=== PATIENT | female | born 1940 | race Caucasian/White ===

== ENCOUNTER 2016-04-21 07:32 | Outpatient (CLI) | payer MEDICARE, OTHER ==
[~2016-04-21] VITALS: Ht 162.6 cm; Wt 93.6 kg
--- NOTE | ~2016-04-21 | HEMODYNAMI ---
PATIENT:MOHAMUD ESCOBAR MEDICAL RECORD: [id number] : 40 LOCATION:[facility] ADMISSION DATE: 04/21/16 Generatedon:04/21/201611:45 Patient name: MOHAMUD ESCOBAR Patient #: [id number] SSN: [id number] : 1940 Date of study: 04/21/2016 Page: Of Hemodynamic Procedure Report Patient Data Patient Demographics Procedure consent was obtained First Name: MOHAMUD Gender: Female Last Name: SHAWN : 1940 Middle Initial: A Age: 75 year(s) Patient #: [id number] Race: Unknown SSN: [id number] Additional ID: [id number] Contact details [address]: [address] [place] [address] State: [place] City: [place] Zip code: [address] Past Medical History Allergies Allergen Reaction Date Comments Reported IV contrast dye 04/21/2016 Codeine 04/21/2016 Bactrim 04/21/2016 Other allergy 04/21/2016 Levaquin, Flagyl Admission Admission Data Admission Date: 04/21/2016 Admission Time: 7:32 Arrival Date: 04/21/2016 Arrival Time: 9:30 Admit Source: Other Insurance Payor: Medicare Height (in.): 64 BSA: 1.98 (m2) Height (cm.): 162.56 BMI: 35.36 (kg/m2) Weight (lbs.): 206 Weight (kg.): 93.44 Lab Results Lab Result Date: 04/21/2016 Lab Result Time: 0:00 Biochemistry Name Units Result Min Max BUN mg/dl 18 --(---*)-- 7 18 Creatinine mg/dl 1.6 --(----)-* 0.6 1.3 CBC Name Units Result Min Max Hemoglobin g/dl 14.5 --(*---)-- 13.5 17.5 Procedure Procedure Types Cath Procedure Diagnostic Procedure [facility] w/Coronaries FFR/IVUS Intra-Coronary IVUS Initial PCI Procedure Coronary Stent Initial Procedure Description Procedure Date Procedure Date: 04/21/2016 Procedure Start Time: 11:22 Procedure End Time: 11:43 Procedure Staff Name Function Blade Montana MD Performing Physician Darrel Brown RT Scrub Tania Escudero RN Nurse Marvin Moore RT [employer] Janet Pantoja RT Monitor Procedure Data Cath Procedure Fluoroscopy Diagnostic fluoroscopy Total fluoroscopy Time: 4.3 time: 4.3 min min Diagnostic fluoroscopy Total fluoroscopy dose: 625 dose: 625 mGy mGy Contrast Material Contrast Material Type Amount (ml) Isovue 370 97 Entry Location Entry Primary Successful Side Size Upsize Upsize Entry Closure Succes sful Closure Location (Fr) 1 (Fr) 2 (Fr) Remarks Device Remarks Femoral Right 5 Fr 6 Fr Vascade artery Short Closure System Estimated blood loss: 5 ml Procedure Complications No complications Procedure Medications Medication Administration Route Dosage Versed I.V. 1 mg Fentanyl I.V. 50 mcg Oxygen NC 2 l/min Heparin Flush Bag added to field 2 bags (1000units/500ml NS) Lidocaine 2% added to field 20 Radial Cocktail added to field 1 syringe (Verapomil 2mg/Nitro 400mcg/Heparin 1500units) Versed I.V. 1 mg Fentanyl I.V. 50 mcg Heparin Bolus I.V. 4000 units Hemodynamics Rest BSA: 1.98 (m2) HGB: 14.5 (g/dl) O2 Consumption: Estimated: 183.92 (ml/min) O2 Co nsumption indexed: Estimated:92.89 (ml/min/m) Heart Rate: 75 (bpm) Pressure Samples Time Site Value (mmHg) Purpose Heart Use Rate(bpm) 11:28 LV 171/7,13 Snapshot 75 Snapshots Pre Cath Intra NCS Post Cath Vital Signs Time Heart Resp SPO2 NIBP (mmHg) Rhythm Pain Sedation Rate (ipm) (%) Status Level (bpm) 11:11:58 72 14 99 169/86(128) NSR 0 (11) 10(A) , No pain 11:16:27 72 17 100 166/84(134) NSR 0 (11) 10(A) , No pain 11:20:51 72 16 96 163/87(137) NSR 0 (11) 10(A) , No pain 11:25:17 73 16 96 166/80(130) NSR 0 (11) 9(A) , No pain 11:29:41 74 20 97 167/80(130) NSR 0 (11) 9(A) , No pain 11:34:06 75 21 96 169/85(112) NSR 0 (11) 9(A) , No pain 11:38:32 77 21 96 162/79(118) NSR 0 (11) 9(A) , No pain 11:41:59 77 19 96 166/79(114) NSR 0 (11) 9(A) , No pain Medications Time Medication Route Dose Verified Delivered Reason Note s Effectiveness by by 11:08:04 Oxygen NC 2 l/min Blade Tania Per physician Nan Escudero RN 11:08:17 Heparin Flush added 2 bags Blade Blade used for Bag to Nan Montana MD procedure (1000units/500ml field NS) 11:08:28 Lidocaine 2% added 20ml Blade Blade used for to vial Nan Montana MD procedure field 11:08:38 Radial Cocktail added 1 Blade Blade used for (Verapomil to syringe Nan Montana MD procedure 2mg/Nitro field 400mcg/Heparin 1500units) 11:19:51 Versed I.V. 1 mg Blade Tania for sedation Nan Escudero RN 11:19:58 Fentanyl I.V. 50 mcg Blade Tania for sedation Nan Escudero RN 11:24:07 Versed I.V. 1 mg Blade Tania for sedation Nan Escudero RN 11:24:11 Fentanyl I.V. 50 mcg Blade Tania for sedation Nan Escudero RN 11:32:00 Heparin Bolus I.V. 4000 Blade Tania for DOSE units Nan Escudero RN anticoagulation VERIFIED WITH DR MONTANA Procedure Log Time Note 10:55:43 Marvin Moore RT(R) sent for patient. Start room use. 11:06:39 ACC Patient presents with Stable Angina CCS Anginal Class 2--Slight limitation of ordinary activity. 11:06:41 Diagnostic Cath status Elective 11:06:58 Time tracking: Regular hours 11:07:02 Plan of Care:Hemodynamics will remain stable., Cardiac rhythm will remain stable., Comfort level will be maintained., Respiratory function will remain adequate., Patient/ family verbilizes understanding of procedure., Procedure tolerated without complication., Recovers from procedure without complications.. 11:07:06 Patient received from Outpatients to CCL 1 Alert and oriented. Tansferred to table in Supine position. 11:07:07 Warm blankets applied, and darling hugger turned on for patient comfort. 11:07:08 Correct patient and procedure confirmed by team. 11:07:09 Signed procedure consent form obtained from patient. 11:07:10 ECG and BP/O2 sat monitors applied to patient. 11:08:04 Oxygen 2 l/min NC was given by Tania Escudero RN; Per physician; 11:08:17 Heparin Flush Bag (1000units/500ml NS) 2 bags added to field was given by Blade Montana MD; used for procedure; 11:08:28 Lidocaine 2% 20ml vial added to field was given by Blade Montana MD; used for procedure; 11:08:38 Radial Cocktail (Verapomil 2mg/Nitro 400mcg/Heparin 1500units) 1 syringe added to field was given by Blade Montana MD; used for procedure; 11:10:43 Vital chart was started 11:10:47 Baseline sample Acquired. 11:10:52 Rhythm: sinus rhythm 11:10:53 Full Disclosure recording started 11:10:58 H&P Date Dictated: 04/21/2016 New H&P dictated by physician.. 11:10:59 Pre-procedure instructions explained to patient. 11:10:59 Pre-op teaching completed and patient verbalized understanding. 11:11:00 Family in waiting room. 11:11:02 Patient NPO since Midnight. 11:11:10 Patient allergic to IV contrast dye 11:11:14 Patient allergic to Codeine 11:11:18 Patient allergic to Bactrim 11:11:50 Patient allergic to Other allergy Levaquin, Flagyl 11:11:53 Is the patient allergic to Iodine/contrast media? Yes. 11:11:54 Was the patient premedicated? Yes 11:11:55 Is patient on blood thinner?Yes 11:11:59 ACC The patient was administered the following blood thiners within the last 24 hours: ACCPlavix 11:12:01 Patient diabetic? No. 11:12:04 Previous problem with sedation/anesthesia? No ? 11:12:05 Snore? Yes 11:12:07 Sleep apnea? Yes 11:12:08 Deviated septum? No 11:12:09 Opens mouth fully? Yes 11:12:09 Sticks out tongue? Yes 11:12:14 Airway obstruction? Yes Asthma 11:12:18 Dentures? No ? 11:12:20 Pre procedure: right dorsailis pedis pulse 1+ Palpable, but thready & weak; easily obliterated 11:12:22 Modified Alec's test Ulnar < 7 seconds 11:12:24 Patient pain scale 0/10 ?. 11:12:31 IV patent on arrival in left hand with 0.9% NaCl at [facility]. 11:12:33 Lab results completed and on chart. 11:12:36 Right Radial & Right Groin area was prepped with chlora-prep and draped in sterile fashion 11:12:37 Alarms reviewed by R. N. 11:12:38 Sharps counted by scrub and verified by R.N. 11:13:00 Lab Result : BUN 18 mg/dl 11:13:00 Lab Result : Hemoglobin 14.5 g/dl 11:13:00 Lab Result : Creatinine 1.6 mg/dl 11:13:07 Use device set Radial Dx 11:13:08 Tegaderm 4 x 4 opened to sterile field. 11:13:09 Acist Hand Control opened to sterile field. 11:13:10 Acist Manifold opened to sterile field. 11:13:11 Acist Syringe opened to sterile field. 11:13:12 Cardinal Cath Pack opened to sterile field. 11:13:12 Bag Decanter opened to sterile field. 11:13:12 Terumo 6Fr Slender Glidesheath opened to sterile field. 11:13:13 St Rajinder 260cm J .035 wire opened to sterile field. 11:13:26 --------ALL STOP TIME OUT------ 11:13:28 Final Timeout: patient, procedure, and site verified with staff and physician. All members of the team are in agreement. 11:13:31 Right Radial & Right Groin site verified by team. 11:13:34 Physical assessment completed. ASA score P 3 - A patient with severe systemic disease as per Blade Montana MD. 11:13:38 Sedation plan: IV Moderate Sedation Versed, Fentanyl 11:19:51 Versed 1 mg I.V. was given by Tania Escudero RN; for sedation; 11::58 Fentanyl 50 mcg I.V. was given by Tania Escudero RN; for sedation; 11:20:36 Zero performed for pressure channel P1 11:22:18 Procedure started. 11:22:25 Local anesthetic to right radial artery with Lidocaine 2% by Blade Montana MD.INITIAL ACCESS ONLY 11:23:22 unable to gain radial access 11:23:42 Local anesthetic to right femoral artery with Lidocaine 2% by Blade Montana MD.ADDITIONAL ACCESS 11:23:54 Cordis Infinity 5Fr Multipack catheter opened to sterile field. 11:23:55 Terumo 5Fr [place] Sheath opened to sterile field. 11:24:07 Versed 1 mg I.V. was given by Tania Escudero RN; for sedation; 11:24:11 Fentanyl 50 mcg I.V. was given by Tania Escudero RN; for sedation; 11:24:16 A 5 Fr sheath was inserted into the Right Femoral artery 11:27:09 5 Fr pigtail guide catheter was inserted over the wire 11:28:12 LV hemodynamics recorded. 11:28:14 LV gram done using MAS 11::17 Injector settings: Ml/sec: 5, Volume: 15, 11::22 EF : 55 % 11:28:44 Catheter removed. 11:28:51 5 Fr jl 4 guide catheter was inserted over the wire 11:29:39 LCA angiography performed. 11::42 Injector settings: Ml/sec: 3, Volume: 6, 11:29:45 Catheter removed. 11:29:53 5 Fr 3drc guide catheter was inserted over the wire 11:30:03 RCA angiography performed. 11:30:18 Injector settings: Ml/sec: 3, Volume: 6, 11:30:20 Catheter removed. 11:30:32 Proceeding to intervention. 11:31:37 Cordis 6FR XBLAD 3.5 guide catheter opened to sterile field. 11:31:38 Miller Kasaan Eagleye IVUS Catheter opened to sterile field. 11:31:38 Britt Whisper J 300cm 0.014 guide wire opened to sterile field. 11:31:39 Merit BasixCompak Inflation Kit opened to sterile field. 11:31:39 Terumo 6Fr [place] Sheath opened to sterile field. 11:32:00 Heparin Bolus 4000 units I.V. was given by Tania Escudero RN; for anticoagulation; DOSE VERIFIED WITH DR MONTANA 11:32:59 Sheath upsized to a 6 Fr Short. 11:33:13 6 Fr xblad 3.5 guide catheter was inserted over the wire 11:33:19 whisper wire advanced. 11:33:21 Wire advanced across lesion. 11:33:31 IVUS catheter advanced over wire. 11:35:37 IVUS pass to LAD lesion performed. 11:36:51 IVUS catheter removed over wire. 11:38:44 Inflation Number: 1 A Subitectronic Integrity 3.5 X 12 stent was prepped and advanced across the Mid LAD. The stent was deployed at 13 JESU for 0:10 (min:sec). 11:39:03 Stent catheter was removed intact over wire. 11:39:03 Wire removed. 11:39:04 Guide catheter removed. 11:40:36 Vascade 6/7 Fr Closure Device opened to sterile field. 11:41:02 Sheath removed intact; hemostasis achieved with Vascade Closure System to the Right Femoral artery. 11:41:06 Procedure ended.(Physican Out) 11:41:26 Fluoroscopy time 04.30 minutes. 11:41:30 Flurop Dose total: 625 11:41:30 Fluoroscopy dose: 625 mGy 11:41:36 Contrast amount:Isovue 370 97ml. 11:41:38 Sharps counted by scrub and verified by R.N. 11:41:39 Insertion/operative site no bleeding no hematoma. 11:41:42 Post-op/insertion site Right Femoral artery dressed using a 4 x 4 and Tegaderm. 11:41:47 Post right femoral artery:stable 11:41:49 Post Procedure Pulses reassessed and unchanged 11:41:52 Post procedure rhythm: unchanged. 11:41:55 Estimated blood loss: 5 ml 11:41:56 Post procedure instruction explained to patient.Patient verbalizes understanding. 11:41:57 Patient needs reinforcement of post procedure teaching. 11:43:13 Procedure type changed to Cath procedure, Diagnostic procedure, LHC, [facility] w/Coronaries, FFR/IVUS, Intra-Coronary IVUS Initial, PCI procedure, Coronary Stent Initial 11:43:16 Procedure and supply charges have been captured, reviewed, submitted and are correct. 11:43:20 Procedure Complication : No complications 11:43:22 Vital chart was stopped 11:43:23 See physician's report for complete and final results. 11:43:29 Report given to Post Procedure Room. 11:43:32 Patient transfered to Post Procedure Room with Stretcher. 11:43:33 Procedure ended. 11:43:33 Full Disclosure recording stopped 11:43:41 ACC-PCI Only Patient was given prescriptions, or instructed by Blade Montana MD to start/continue the following medications upon discharge: Plavix 11:43:43 End room use (Document Last) 11:44:30 Arrival Date: 04/21/2016 9:30:00 AM 11:44:35 Admit Source: Other 11:44:37 Insurance Payor : Medicare 11:44:42 Patient Height : 162.56 cm 11:44:46 Patient Weight : 93.44 kg Intervention Summary Intervention Notes Time ActionType Lesion and Equipment Action# Pressure Duration Attributes Used 11:38:44 Place stent Mid LAD Medtronic 1 13 00:10 Integrity 3.5 X 12 stent Device Usage Item Name Manufacture Quantity Catalog Hospital Part Current Minima l Lot# / Number Charge Number Stock Stock Serial# Code Tegaderm 4 1 [id number] 384390 [id number] 5 x 4 Acist Hand Acist 1 82561 142671 052103 777603 5 Control Medical Systems Inc Acist Acist 1 49645 271293 461259 952506 5 Manifold Medical Systems Inc Acist Acist 1 84947 347370 893114 281661 20 Syringe Medical Systems Inc Cardinal Cardinal 1 [id number] 624607 66171 070656 5 Cath Pack Health Bag Microtek 1 2001S 685489 72277 981064 5 Prestiamoci. Terumo 6Fr Terumo 1 [id number] 580444 218769 310305 [address] St Rajinder 1 986958 507213 298973 171111 30 260cm J .035 wire Cordis Cardinal 1 [id number] 090799 69224 575639 30 SideTour 5Fr Multipack catheter Terumo 5Fr Terumo 1 [id number] 088645 000908 145649 40 [place] Sheath Cordis 6FR Cardinal 1 [id number] 615817 408993 689173 10 XBLAD 3.5 Health guide catheter Miller Miller 1 [id number] 367858 871013 881005 8 Kasaan Eagleye IVUS Catheter Britt Britt 1 [id number] 828849 636737 629687 5 Whisper J Vascular 300cm 0.014 guide wire Merit Merit 1 [id number] 139551 666515 451806 15 BasixTembusu Terminalspak Medical Inflation Kit Terumo 6Fr Terumo 1 [id number] 284905 359810 103820 40 [place] Sheath Medtronic Medtronic 1 [id number] 505206 359467 399267 5 [id number] Integrity 3.5 X 12 stent Vascade 09/16 Cardiva 1 [id number] 587914 931556 720589 5 Fr Closure Medical, Device Inc. Signature Audit [place] Stage Time Signature Unsigned Intra-Procedure 04/21/2016 Janet Pantoja 11:45:28 AM RT(R) Signatures Monitor : Janet Pantoja RT Signature : Date : Time : [place] [id number] [place] [address]
[~2016-04-21 07:32] MED LIST: ARICEPT10 MG PO; ASPIRIN EC81 MG PO; BIOTIN5 MG PO; CRANBERRY; FLEXERIL10 MG; LASIX40 MG PO; LEVOTHROID75 MCG PO; LEXAPRO20 MG PO; LOPID600 MG PO; MULTI-DAY VITAM1 TAB PO; NASACORT AQ16.5 GM NS; NORCO 10/325 TA1 TA1; PLAQUENIL200 MG PO; PLENDIL5 MG PO; PRILOSEC20 MG PO; PROVENTIL HFA6.7 GM INH; STOOL SOFTENER240 MG PO; VITAMIN D2000 UNIT PO; XALATAN 0.0052.5 ML EACH EYE; ZYLOPRIM300 MG PO; ZYRTEC10 MG
[2016-04-21 08:22] LABS: BASOPHILS 0 % (0.0-2.0); EOSINOPHILS 0 % (0-7); HEMATOCRIT 44.7 % (36.0-48.0); HEMOGLOBIN 14.5 g/dL (12-16); IMMATURE GRANULOCYTES 0.2 % (0-5); LYMPHOCYTES 23.4 % (15-50); MCH 28.8 pg (26.0-34.0); MCHC 32.4 g/dL (31.0-37.0); MCV 88.7 fL (80.0-100.0); MEAN PLATELET VOLUME 9.9 fL (7.4-10.4); NEUTROPHILS 73.4 % (40-80); PLATELET COUNT 226 10x3/uL (130-400); RBC 5.04 10x6/uL (4.00-5.40); RDW 14.4 % (11.5-14.5); WBC 8.1 10x3/uL (4.8-10.8)
[2016-04-21 08:39] LABS: CARBON DIOXIDE 27.3 mmol/L (21.0-32.0); CREATININE - SERUM 1.6 mg/dL (0.6-1.3); POTASSIUM - SERUM 4.3 mmol/L (3.5-5.1)
[2016-04-21] MEDS ORDERED: LEVOXYL100 MCG PO (08:40)
[2016-04-21] MEDS ORDERED: ZYLOPRIM300 MG PO (08:42)
[2016-04-21] MEDS ORDERED: XALATAN 0.0052.5 ML EACH EYE (08:43)
[2016-04-21] MEDS ORDERED: LIPITOR10 MG PO (08:43)
[2016-04-21] MEDS ORDERED: ACETAMINOPHEN500 M1 PO (08:45)
[2016-04-21] MEDS ORDERED: OSTEO BI-FLEX1 EAC1 PO (08:45)
[2016-04-21] MEDS ORDERED: PREDNISONE10 MG PO (08:47)
[2016-04-21] MEDS ORDERED: PLAVIX75 MG PO ×2 (08:47→12:17)
[2016-04-21] MEDS ORDERED: PRILOSEC PO (08:48)
[2016-04-21 09:05] VITALS: BP 139/69; Ht 162.6 cm; Wt 93.6 kg
--- NOTE | 2016-04-21 14:10 | NUR ---
1210 LYING FLAT, RESTING WITH EYES CLOSED. NC 2L WHILE SLEEPING. NSR RATE 76 WNO C/O CHEST PAIN. PULSES PALP X 4. R GROIN 6F VASCADE C/D/I WITH NO HEMATOMA OR BLEEDING. AT SIDE. 1250 LYING FLAT, TALKING WITH FAMILY AT BEDSIDE. ROOM AIR W NO DISTRESS. NSR W NO C/O CHEST PAIN. R GROIN 6F VASCADE C/D/I WITH NO HEMATOMA OR BLEEDING 1330 R GROIN REMAINS C/D/I WITH NO HEMATOMA OR BLEE
--- NOTE | 2016-04-21 14:39 | NUR ---
ELEVATED HOB, EATING SANDWICH TRAY WITH ASSIST FROM . WILL MONITOR R GROIN FOR BLEEDING.
--- NOTE | 2016-04-21 15:20 | NUR ---
PIV REMOVED FROM LEFT HAND WITH BANDAID APPLIED. AMBULATED TO BATHROOM TO VOID. R GROIN REMAINS C/D/I AFTER AMBULATING.
--- NOTE | 2016-04-21 15:30 | NUR ---
D/C INSTRUCTIONS DISCUSSED WITH PATIENT AND AT BEDSIDE. WHEELED DOWN VIA WHEELCHAIR BY STONE TRIMMER TEAM.
--- NOTE | 2016-04-24 11:11 | OP ---
PATIENT NAME: MOHAMUD ESCOBAR MEDICAL RECORD: [id number] :40 LOCATION:D[facility] ADMISSION DATE: SURGEON: ELOISA JEAN MD DATE OF OPERATION: 04/21/2016 PROCEDURES: 1. PTCA stent, LAD. 2. Intravascular ultrasound of the LAD. 3. Left heart catheterization. 4. Selective coronary angiography. 5. Left ventriculogram. INDICATION: Angina and coronary artery disease. PROCEDURE IN DETAIL: After informed consent was obtained and after detailed explanation of risks, benefits as well as alternative therapies, the patient elected to proceed with angiogram and angioplasty. The right femoral area was prepped and draped in normal sterile fashion. The right femoral artery was cannulated via modified Seldinger technique with placement of 6-Czech sheath. All catheters exchanged through this sheath. FINDINGS: The left ventriculogram was performed in the standard 30-degree MAS view reveals good cardiac wall motion throughout all segments. Overall ejection fraction estimated at 60%. SELECTIVE CORONARY ANGIOGRAPHY: 1. Left main showed no significant angiographic disease. 2. Left anterior descending has a 70% stenosis proximally confirmed by intravascular ultrasound. 3. Right coronary artery has moderate irregularities, but no flow-limiting stenosis. 4. Left circumflex has moderate irregularities, but no flow-limiting stenosis. PERCUTANEOUS TRANSLUMINAL CORONARY ANGIOPLASTY STENT OF THE LEFT ANTERIOR DESCENDING: The stent used is a 3.5 x 12 mm Integrity. Result was 0% residual stenosis. OVERALL IMPRESSION: Successful percutaneous transluminal coronary angioplasty stent of the left anterior descending going from 70% initial stenosis to 0% residual. TRANSINT:[id number] Voice Confirmation ID: [id number] DOCUMENT ID: [id number] ELOISA JEAN MD at 1111 CC: [id number] DICTATION DATE: 04/21/16 1144 DRUG PURCHASER: 04/21/16 1253 DEP CLI 04/21/16 [place] [id number]
--- NOTE | 2016-04-24 11:11 | HP ---
PATIENT: MOHAMUD ESCOBAR MEDICAL RECORD: [id number] ACCOUNT: [id number] LOCATION:[facility] : 40 ADMISSION DATE: 04/21/16 HISTORY AND PHYSICAL EXAMINATION DATE OF HISTORY AND PHYSICAL: 04/21/2016 DIAGNOSES: 1. Angina. 2. Abnormal nuclear stress test, anterior ischemia. HISTORY OF PRESENT ILLNESS: Mrs. Escobar presents with anginal symptomatology, risk stratify with stress testing showed significant anterior ischemia, now brought for cardiac catheterization. PHYSICAL EXAMINATION: GENERAL APPEARANCE: Well-nourished, well-developed, appears stated age. Level of distress, comfortable. PSYCHIATRIC: Mental status, alert, normal affect. Orientation, oriented to time, place and person. EYES: Lids and conjunctiva, noninjected. No discharge, no pallor. ENT: Lips, teeth, gums, normal dentition. Oropharynx, no cyanosis, no pallor. NECK: Carotid arteries, bilateral normal upstroke, no bruits, no thrills. JUGULAR VEINS: No jugular venous pressure or distention. CERVICAL LYMPH NODES: Nontender, nonenlarged. THYROID: Not enlarged. Nontender. No nodules. LUNGS: Respiratory effort, unlabored. CHEST: Normal curvature. No thoracic deformity. No chest wall tenderness. Percussion, resonant. Auscultation, clear. No wheezes, no rales, no rhonchi. CARDIOVASCULAR: Precordial exam, nondisplaced. No heaves or pericardial thrills. Rate and rhythm, regular. Heart sounds, normal S1, normal S2. No S3, no gallop, no rub. Systolic murmur, not heard. Diastolic murmur, not heard. EXTREMITIES: No cyanosis, no edema. Peripheral pulses, full and equal in all extremities, except as noted. No bruits appreciated. ABDOMEN: Soft, nondistended. Normal aorta. No bruit. Nontender. No masses. Liver, nontender, no hepatomegaly. Spleen, nontender, no splenomegaly. MUSCULOSKELETAL: No joint tenderness. No joint swelling. No erythema. NEUROLOGICAL: Normal gait, normal strength, normal tone. SKIN: Warm and dry. REVIEW OF SYSTEMS: The patient reports easy bruising but reports no swollen glands. The patient reports no fever, no night sweats, no significant weight gain, no significant weight loss. No significant exercise tolerance. The patient reports no dry eyes, no irritation, no vision change. Patient reports no difficulty hearing and no ear pain. Patient reports no frequent nose bleeds or nose and sinus problems. Patient reports on arm pain on exertion. No shortness of breath while lying down. No history of heart murmur. Patient reports no cough, no wheezing or coughing up blood. Patient reports no abdominal pain, no vomiting. Normal appetite. No diarrhea and not vomiting blood. No nausea and no constipation. Patient reports no incontinence. No difficulty urinating. No hematuria. No increased frequency. Patient reports no muscle aches. No weakness, no arthralgias, no back pain. No swelling of the extremities. Patient reports no abnormal mole, no jaundice, no rashes. Reports no loss of consciousness. No weakness and no numbness. No seizures, dizziness, or headaches. The patient reports no depression, no sleep disturbance, feeling HISTORY AND PHYSICAL [id number] CREASY,MOHAMUD A safe in a relationship and no alcohol abuse. Patient reports on fatigue. Reports no runny nose or sinus pressure. No itching, no hives, and no frequent sneezing. OVERALL IMPRESSION: Anginal symptomatology with significant disease of the left anterior descending. We will proceed with percutaneous transluminal coronary angioplasty stent of the left anterior descending. TRANSINT:[id number] Voice Confirmation ID: [id number] DOCUMENT ID: [id number] ELOISA JEAN MD at 1111 CC: [id number] DICTATION DATE: 04/21/16 1041 DRESSMAKER GARMENT FITTER: 04/21/16 1053 DEP CLI 04/21/16 [place] [id number] [place] [id number]
== END 2016-04-21 15:31 | disposition home or self-care (01) ==
LOC: D.CATH 07:32
PROVIDERS: Internal Medicine Interventional Cardiology
DX: I25.119 Atherosclerotic heart disease of native coronary artery with unspecified angina pectoris (principal)

== ENCOUNTER 2017-03-10 07:24 | Outpatient (CLI) | payer MEDICARE, OTHER ==
[~2017-03-10] VITALS: Ht 162.6 cm; Wt 95.0 kg
--- NOTE | ~2017-03-10 | HEMODYNAMI ---
PATIENT:MOHAMUD ESCOBAR MEDICAL RECORD: [id number] : 40 LOCATION:[facility] ADMISSION DATE: 03/10/17 Generatedon:03/10/201710:31 Patient name: MOHAMUD ESCOBAR Patient #: [id number] SSN: [id number] : 1940 Date of study: 03/10/2017 Page: Of Hemodynamic Procedure Report Patient Data Patient Demographics Procedure consent was obtained First Name: MOHAMUD Gender: Female Last Name: SHAWN : 1940 Middle Initial: A Age: 76 year(s) Patient #: [id number] Race: Unknown SSN: [id number] Additional ID: [id number] Contact details [address]: [address] [place] [address] State: [place] City: [place] Zip code: [address] Past Medical History Allergies Allergen Reaction Date Comments Reported IV contrast dye 04/21/2016 Codeine 04/21/2016 Bactrim 04/21/2016 Other allergy 04/21/2016 Levaquin, Flagyl Admission Admission Data Admission Date: 03/10/2017 Admission Time: 7:24 Admit Source: Other Lab Results Lab Result Date: 03/10/2017 Lab Result Time: 8:00 Biochemistry Name Units Result Min Max BUN mg/dl 25 --(----)-* 7 18 Creatinine mg/dl 1.7 --(----)-* 0.6 1.3 CBC Name Units Result Min Max Hematocrit % 38.1 *-(----)-- 42 54 Hemoglobin g/dl 12.8 -*(----)-- 13.5 17.5 Procedure Procedure Types Cath Procedure Diagnostic Procedure [facility] w/Coronaries FFR/IVUS Intra-Coronary IVUS Initial Miscellaneous Procedures Moderate Sedation up to 15 minutes Procedure Description Procedure Date Procedure Date: 03/10/2017 Procedure Start Time: 10:16 Procedure End Time: 10:31 Procedure Staff Name Function Blade Montana MD Performing Physician Fritz Forte RT Monitor Marvin Moore RT Scrub Martha Wayne RN Nurse Shyanne Rock RN Nurse Procedure Data Cath Procedure Fluoroscopy Diagnostic fluoroscopy Total fluoroscopy Time: 2.4 time: 2.4 min min Diagnostic fluoroscopy Total fluoroscopy dose: 486 dose: 486 mGy mGy Contrast Material Contrast Material Type Amount (ml) Isovue 300 79 Entry Location Entry Primary Successful Side Size Upsize Upsize Entry Closure Succes sful Closure Location (Fr) 1 (Fr) 2 (Fr) Remarks Device Remarks Femoral Right 5 Fr 6 Fr Exoseal artery Short Estimated blood loss: 10 ml Diagnostic catheters Device Type Used For End Catheter Placement Cordis 5Fr Pigtail Procedure Catheter (MP) Cordis 5Fr JL 4.0 Procedure Catheter (MP) Cordis 5Fr 3DRC Catheter Procedure (MP) Procedure Complications No complications Procedure Medications Medication Administration Route Dosage 0.9% NaCl I.V. ml/hr Lidocaine 2% added to field 20 Heparin Flush Bag added to field 2 bags (1000units/500ml NS) Oxygen NC 2 l/min Fentanyl I.V. 50 mcg Versed I.V. 1 mg Fentanyl I.V. 50 mcg Versed I.V. 1 mg Fentanyl I.V. 50 mcg Versed I.V. 0.5 mg Hemodynamics Rest HGB: 12.8 (g/dl) Heart Rate: 64 (bpm) Snapshots Pre Cath Intra NCS Post Cath Vital Signs Time Heart Resp SPO2 etCO2 NIBP (mmHg) Rhythm Pain Sedation Rate (ipm) (%) (mmHg) Status Level (bpm) 9:51:08 64 15 94 31.6 148/71(113) NSR 0 (11) 10(A) , No pain 9:55:52 63 17 97 21 138/66(109) NSR 0 (11) 10(A) , No pain 10:00:35 63 16 98 11.3 135/62(106) NSR 0 (11) 10(A) , No pain 10:05:18 68 13 98 12.8 139/67(108) NSR 0 (11) 10(A) , No pain 10:10:02 66 15 96 26.3 141/65(106) NSR 0 (11) 10(A) , No pain 10:14:45 68 17 96 24.1 141/61(105) NSR 0 (11) 9(A) , No pain 10:19:30 69 16 95 20.3 141/63(112) NSR 0 (11) 9(A) , No pain 10:24:15 72 14 98 24.8 137/64(103) NSR 0 (11) 10(A) , No pain 10:29:01 67 16 96 19.6 139/62(85) NSR 0 (11) 10(A) , No pain Medications Time Medication Route Dose Verified Delivered Reason Notes Effe ctiveness by by 9:37:50 0.9% NaCl I.V. ml/hr Blade Martha used for Nan Wayne RN procedure 9:38:18 Lidocaine 2% added 20ml Blade Blade for local to vial Nan Montana MD anesthetic field 9:38:29 Heparin Flush added 2 Blade Blade used for Bag to bags Nan Montana MD procedure (1000units/500ml field NS) 9:38:50 Oxygen NC 2 Blade Thomas used for l/min Nan Wayne RN procedure 10:12:57 Fentanyl I.V. 50 Blade Linaresy for steffanie Wayne RN sedation 10:13:08 Versed I.V. 1 mg Blade Linaresy for Nan Wayne RN sedation 10:16:00 Fentanyl I.V. 50 Blade Powellfany for steffanie Wayne RN sedation 10:22:49 Versed I.V. 1 mg Blade Powellfany for Nan Wayne RN sedation 10:23:02 Fentanyl I.V. 50 Blade Thomas for steffanie Wayne RN sedation 10:25:04 Versed I.V. 0.5 Blade Martha for mg Nan Wayne RN sedation Procedure Log Time Note 9:28:35 Informed consent obtained and on chart 9:28:39 Admit Source: Other 9:29:44 Diagnostic Cath status Elective 9:29:45 Time tracking: Regular hours 9:29:50 Plan of Care:Hemodynamics will remain stable., Cardiac rhythm will remain stable., Comfort level will be maintained., Respiratory function will remain adequate., Patient/ family verbilizes understanding of procedure., Procedure tolerated without complication., Recovers from procedure without complications.. 9:29:57 H&P Date Dictated: 03/10/2017 New H&P dictated by physician.. 9:31:12 Lab results completed and on chart. 9:32:11 Lab Result : BUN 25 mg/dl 9:32:11 Lab Result : Creatinine 1.7 mg/dl 9:32:11 Lab Result : Hematocrit 38.1 % 9:32:11 Lab Result : Hemoglobin 12.8 g/dl 9:33:11 Fritz Forte RT(R) sent for patient. Start room use. 9:37:50 0.9% NaCl ml/hr I.V. was administered by Martha Wayne RN; used for procedure; 9:38:18 Lidocaine 2% 20ml vial added to field was administered by Blade Montana MD; for local anesthetic; 9:38:29 Heparin Flush Bag (1000units/500ml NS) 2 bags added to field was administered by Blade Montana MD; used for procedure; 9:38:50 Oxygen 2 l/min NC was administered by Martha Wayne RN; used for procedure; 9:43:29 Patient received from Pre/Post Procedure Room to CCL 1 Alert and oriented. Tansferred to table in Supine position. 9:43:31 Warm blankets applied, and darling hugger turned on for patient comfort. 9:43:31 Correct patient and procedure confirmed by team. 9:43:32 ECG and BP/O2 sat monitors applied to patient. 9:49:15 Vital chart was started 10:03:55 Baseline sample Acquired. 10:04:06 Rhythm: sinus rhythm 10:04:08 Full Disclosure recording started 10:04:09 Pre-procedure instructions explained to patient. 10:04:10 Pre-op teaching completed and patient verbalized understanding. 10:04:12 Family in waiting room. 10:04:14 Patient NPO since Midnight. 10:04:16 Is the patient allergic to Iodine/contrast media? Yes. 10:04:17 Was the patient premedicated? Yes 10:04:19 Is patient on blood thinner?No 10:04:26 ACC The patient was administered the following blood thiners within the last 24 hours: ACCPlavix 10:04:29 Patient diabetic? No. 10:04:32 Patient not . Patient is over age 55. 10:04:35 Previous problem with sedation/anesthesia? No ? 10:04:36 Snore? Yes 10:04:37 Sleep apnea? Yes 10:04:38 Deviated septum? No 10:04:39 Opens mouth fully? Yes 10:04:39 Sticks out tongue? Yes 10:04:43 Airway obstruction? Yes Asthma 10:04:47 Dentures? No ? 10:04:53 Pre procedure: right dorsailis pedis pulse 1+ Palpable, but thready & weak; easily obliterated 10:04:55 Patient pain scale 0/10 ?. 10:05:07 IV patent on arrival in right antecubital with 0.9% NaCl at [facility]. 10:06:05 Right groin area was prepped with chlora-prep and draped in sterile fashion 10:06:06 Alarms reviewed by R. N. 10:06:07 Sharps counted by scrub and verified by R.N. 10:06:14 Use device set Femoral Dx 10:06:18 Tegaderm 4 x 4 opened to sterile field. 10:06:19 ACIST: Hand Control (43883) opened to sterile field. 10:06:20 ACIST: Manifold (11032) opened to sterile field. 10:06:21 ACIST: Syringe (54990) opened to sterile field. 10:06:21 Bag Decanter (2002S) opened to sterile field. 10:06:22 Medline Cath Pack ([id number]) opened to sterile field. 10:06:22 Terumo 5Fr [place] Sheath opened to sterile field. 10:06:23 St Rajinder 260cm J .035 wire opened to sterile field. 10:06:24 Diagnostic Infinity 5Fr Multipack catheter opened to sterile field. 10:10:32 --------ALL STOP TIME OUT------ 10:10:32 Final Timeout: patient, procedure, and site verified with staff and physician. All members of the team are in agreement. 10:10:35 Right groin site verified by team. 10:10:38 Physical assessment completed. ASA score P 2 - A patient with mild systemic disease as per Blade Montana MD. 10:10:40 Sedation plan: IV Moderate Sedation Medication:Versed, Fentanyl 10:12:57 Fentanyl 50 mcg I.V. was administered by Martha Wayne RN; for sedation; 10:13:08 Versed 1 mg I.V. was administered by Martha Wayne RN; for sedation; 10:16:00 Fentanyl 50 mcg I.V. was administered by Martha Wayne RN; for sedation; 10:16:10 Procedure started. 10:16:20 Local anesthetic to right femoral artery with Lidocaine 2% by Blade Montana MD.INITIAL ACCESS ONLY 10:16:57 A 5 Fr sheath was inserted into the Right Femoral artery 10:17:26 A Cordis 5Fr Pigtail Catheter (MP) was advanced over the wire and used for Procedure. 10:17:57 LV angiography performed. 10:17:59 LV gram done using MAS 10:18:05 EF : 60 % 10:18:09 Injector settings: Ml/sec: 10, Volume: 20, 10:18:14 Catheter removed. 10:18:29 A Cordis 5Fr JL 4.0 Catheter (MP) was advanced over the wire and used for Procedure. 10:19:13 LCA angiography performed. 10:19:58 Catheter removed. 10:20:19 A Cordis 5Fr 3DRC Catheter (MP) was advanced over the wire and used for Procedure. 10:20:55 RCA angiography performed. 10:20:57 Catheter removed. 10:21:10 Terumo 6Fr [place] Sheath opened to sterile field. 10:21:11 [employer] BasixCompak Inflation Kit opened to sterile field. 10:21:11 Britt Whisper 190cm wire opened to sterile field. 10:21:11 [place] IVUS Catheter opened to sterile field. 10:22:10 Cordis 6FR XBLAD 4.0 guide catheter opened to sterile field. 10:22:21 Sheath upsized to a 6 Fr Short. 10:22:28 6 Fr XBLAD 4 guide catheter was inserted over the wire 10:22:49 Versed 1 mg I.V. was administered by Martha Wayne RN; for sedation; 10:23:02 Fentanyl 50 mcg I.V. was administered by Martha Wayne RN; for sedation; 10:23:27 Whisper wire advanced. 10:23:50 Wire advanced across lesion. 10:23:59 IVUS catheter advanced over wire. 10:24:36 IVUS pass to LAD lesion performed. 10:25:04 Versed 0.5 mg I.V. was administered by Martha Wayne RN; for sedation; 10:25:14 IVUS catheter removed over wire. 10::13 Wire removed. 10::13 Guide catheter removed. 10::21 Cordis 6Fr Exoseal opened to sterile field. 10::35 Sheath removed intact; hemostasis achieved with Exoseal to the Right Femoral artery. 10:26:37 Procedure ended.(Physican Out) 10:27:13 Fluoroscopy time 02.40 minutes. 10::17 Fluoroscopy dose: 486 mGy 10:: Flurop Dose total: 486 10:: Contrast amount:Isovue 300 79ml. 10:27:22 Sharps counted by scrub and verified by R.N. 10::23 Insertion/operative site no bleeding no hematoma. 10::27 Post-op/insertion site Right Femoral artery dressed using a 4 x 4 and Tegaderm. 10:27:29 Post Procedure Pulses reassessed and unchanged 10:27:31 Post-procedure physical assessment completed. ASA score P 2 - A patient with mild systemic disease as per Blade Montana MD. 10:27:34 Post procedure rhythm: unchanged. 10::37 Estimated blood loss: 10 ml 10:27:38 Post procedure instruction explained to patient.Patient verbalizes understanding. 10:27:39 Patient needs reinforcement of post procedure teaching. 10:28:00 Procedure type changed to Cath procedure, Diagnostic procedure, LHC, LHC w/Coronaries, FFR/IVUS, Intra-Coronary IVUS Initial, Miscellaneous Procedures, Moderate Sedation up to 15 minutes 10:28:04 Procedure Complication : No complications 10:28:28 Procedure and supply charges have been captured, reviewed, submitted and are correct. 10:30:53 Vital chart was stopped 10::54 See physician's report for complete and final results. 10:30:59 Report given to Pre/Post Procedure Room. 10:31:02 Patient transfered to Pre/Post Procedure Room with Stretcher. 10:31:05 Procedure ended. 10:31:05 Full Disclosure recording stopped 10:31:10 End room use (Document Last) Device Usage Item Name Manufacture Quantity Catalog Hospital Part Current Minimal L ot# / Number Charge Number Stock Stock Serial# Code Tegaderm 4 3M 1 1626W [id number] [id number] 5 x 4 (1626W) ACIST: Hand Acist 1 28912 989098 884538 188315 5 Control Medical (71569) Systems Inc ACIST: Acist 1 94397 593214 575731 519833 5 Manifold Medical (99295) Systems Inc ACIST: Acist 1 84788 554918 784590 017350 20 Syringe Medical (96245) Systems Inc Bag Microtek 1 2001S 196466 02462 338779 5 Decanter Medical Inc. (2001S) Medline Cardinal 1 [id number] 803795 43109 290345 5 Cath Pack Health ([id number]) Terumo 5Fr Terumo 1 FRR058 139278 412215 560552 [address] Rajinder 1 597567 640905 226160 778384 30 260cm J .035 wire Diagnostic Cardinal 1 MO5470 662210 46798 491150 30 Infinity Health 5Fr Multipack catheter Cordis 5Fr Cardinal 1 [id number] 5 Pigtail Health Catheter (MP) Cordis 5Fr Cardinal 1 298495 5 JL 4.0 Health Catheter (MP) Cordis 5Fr Cardinal 1 078201 5 3DRC Health Catheter (MP) Terumo 6Fr Terumo 1 HUT234 580019 785312 179768 40 [place] Sheath INFLATOR: [employer] 1 CZ9496 313151 491540 299761 15 [facility] BasixCompak Inflation Kit (NW5587) Britt Britt 1 [id number] 492635 203392 188520 5 Whisper Vascular 190cm wire [facility] 1 69139V 899743 143968 019480 8 [place] IVUS Catheter Cordis 6FR Cardinal 1 [id number] 777430 418598 136061 3 XBLAD 4.0 Health guide catheter Cordis 6Fr Cardinal 1 EX600 136640 348511 269577 10 [employer] Signature Audit [place] Stage Time Signature Unsigned Intra-Procedure 03/10/2017 Marvin Moore 10:31:26 AM RT(R) Signatures Monitor : Fritz Forte RT Signature : Date : Time : [facility] [address] [place] [address]
[~2017-03-10 07:24] MED LIST changes: +ACETAMINOPHEN500 M1 PO; +LEVOXYL100 MCG PO; +LIPITOR10 MG PO; +OSTEO BI-FLEX1 EAC1 PO; +PLAVIX75 MG PO; +PREDNISONE10 MG PO; +PRILOSEC PO
[2017-03-10 07:47] VITALS: BP 164/70; Ht 162.6 cm; Wt 95.0 kg
[2017-03-10 08:10] LABS: BASOPHILS 0 % (0-2); EOSINOPHILS 0 % (0-7); HEMATOCRIT 38.1 % (36.0-48.0); HEMOGLOBIN 12.8 g/dL (12-16); IMMATURE GRANULOCYTES 0.3 % (0-5); LYMPHOCYTES 45.5 % (15-50); MCHC 33.6 g/dL (31.0-37.0); MCV 86.2 fL (80.0-100.0); MEAN PLATELET VOLUME 8.8 fL (7.4-10.4); MONOCYTES 5.4 % (2-11); NEUTROPHILS 48.8 % (40-80); RBC 4.42 10x6/uL (4.00-5.40); RDW 15.4 % (11.5-14.5); WBC 5.8 10x3/uL (4.8-10.8)
[2017-03-10 08:19] LABS: PLATELET COUNT 141 10x3/uL (130-400)
[2017-03-10 08:20] LABS: ANION GAP 15.7 mmol/L (8-16); CALCIUM 9.9 mg/dL (8.5-10.1); CARBON DIOXIDE 22.1 mmol/L (21.0-32.0); CREATININE - SERUM 1.7 mg/dL (0.6-1.3); POTASSIUM - SERUM 3.8 mmol/L (3.5-5.1)
--- NOTE | 2017-03-10 10:45 | NUR ---
1045 RECEIVED PT FROM [employer]. PT IS DROWSY. RR EVEN AND UNLABORED. DRESSING RIGHT GROIN IS CDI, AREA IS SOFT AND NONTENDER. PEDAL PULSES PALPABLE. NSR, RATE 61. BP IS 126/59. INSTRUCTED PT TO KEEP HEAD FLAT TO PILLOW AND RIGHT LEG STRAIGHT AND PT VERBALIZES UNDERSTANDING. CALL LIGHT IN REACH, FAMILY AT BEDSIDE.
--- NOTE | 2017-03-10 11:06 | NUR ---
PT RESTING WITH EYES CLOSED, AWAKENS EASILY. DRESSING CDI, AREA SOFT AND NONTENDER. PEDAL PULSES PALPABLE. PT DENIES ANY C/O. FAMILY AT BEDSIDE.
--- NOTE | 2017-03-10 11:35 | NUR ---
1135 PT DENIES ANY C/O. DRESSING TO RIGHT GROIN IS CDI, AREA IS SOFT AND NONTENDER. PEDAL PULSES PALPABLE. VSS. AT BEDSIDE, CALL LIGHT IS IN REACH.
--- NOTE | 2017-03-10 12:07 | NUR ---
SANDWICH AND PO FLUIDS SERVED. PT DENIES ANY C/O. DRESSING TO RIGHT GROIN IS CDI, AREA IS SOFT AND NONTENDER. PEDAL PULSES PALPABLE. FAMILY AT BEDSIDE.
--- NOTE | 2017-03-10 12:16 | NUR ---
PT STALIN PO INTAKE WITH NO C/O NAUSEA. DRESSING RIGHT GROIN IS CDI, AREA SOFT AND NONTENDER. PEDAL PULSES PALPABLE, PT SLEEPING BUT AWAKENS EASILY, DENIES ANY C/O. AT BEDSIDE. CALL LIGHT IN REACH.
--- NOTE | 2017-03-10 12:41 | NUR ---
HOB ELEVATED. DRESSING TO RIGHT GROIN IS CDI, AREA SOFT AND NONTENDER. PEDAL PULSES PALPABLE. CAP REFILL IS BRISK. PT DENIES ANY C/O AT THIS TIME. AT BEDSIDE, CALL LIGHT IN REACH.
--- NOTE | 2017-03-10 13:02 | NUR ---
IV DC'D WITH CATH INTACT. DC INSTRUCTIONS REVIEWED WITH PT AND WHO VERBALIZE UNDERSTANDING. WRITTEN COPIES PROVIDED. MULTIPLE FAMILY MEMBERS IN ROOM ASSISTING PT WITH DRESSING.
--- NOTE | 2017-03-10 13:30 | NUR ---
1330 PT HAS AMBULATED TO THE BATHROOM AND VOIDED QS. DENIES ANY C/O UPON DC. DRESSING REMAINS CDI. PT ESCORTED TO PRIVATE AUTO VIA WC BY NURSE WITH DRIVNG HER HOME.
--- NOTE | 2017-03-23 12:14 | HP ---
PATIENT: MOHAMUD ESCOBAR MEDICAL RECORD: [id number] ACCOUNT: [id number] LOCATION:[facility] : 40 ADMISSION DATE: 03/10/17 HISTORY AND PHYSICAL EXAMINATION DIAGNOSES: 1. Angina. 2. Abnormal nuclear stress test. 3. Hypertension. 4. Hyperlipidemia. HISTORY: Mrs. Escobar presented with anginal symptomatology. She underwent risk stratification with stress testing, revealing significant perfusion defects inferiorly as well as anteriorly, now brought back for angiogram. REVIEW OF SYSTEMS: The patient reports easy bruising but reports no swollen glands. The patient reports no fever, no night sweats, no significant weight gain, no significant weight loss. No significant exercise tolerance. The patient reports no dry eyes, no irritation, no vision change. Patient reports no difficulty hearing and no ear pain. Patient reports no frequent nose bleeds or nose and sinus problems. Patient reports on arm pain on exertion. No shortness of breath while lying down. No history of heart murmur. Patient reports no cough, no wheezing or coughing up blood. Patient reports no abdominal pain, no vomiting. Normal appetite. No diarrhea and not vomiting blood. No nausea and no constipation. Patient reports no incontinence. No difficulty urinating. No hematuria. No increased frequency. Patient reports no muscle aches. No weakness, no arthralgias, no back pain. No swelling of the extremities. Patient reports no abnormal mole, no jaundice, no rashes. Reports no loss of consciousness. No weakness and no numbness. No seizures, dizziness, or headaches. The patient reports no depression, no sleep disturbance, feeling safe in a relationship and no alcohol abuse. Patient reports on fatigue. Reports no runny nose or sinus pressure. No itching, no hives, and no frequent sneezing. PHYSICAL EXAMINATION: GENERAL APPEARANCE: Well-nourished, well-developed, appears stated age. Level of distress, comfortable. PSYCHIATRIC: Mental status, alert, normal affect. Orientation, oriented to time, place and person. EYES: Lids and conjunctiva, noninjected. No discharge, no pallor. ENT: Lips, teeth, gums, normal dentition. Oropharynx, no cyanosis, no pallor. NECK: Carotid arteries, bilateral normal upstroke, no bruits, no thrills. JUGULAR VEINS: No jugular venous pressure or distention. CERVICAL LYMPH NODES: Nontender, nonenlarged. THYROID: Not enlarged. Nontender. No nodules. LUNGS: Respiratory effort, unlabored. CHEST: Normal curvature. No thoracic deformity. No chest wall tenderness. Percussion, resonant. Auscultation, clear. No wheezes, no rales, no rhonchi. CARDIOVASCULAR: Precordial exam, nondisplaced. No heaves or pericardial thrills. Rate and rhythm, regular. Heart sounds, normal S1, normal S2. No S3, no gallop, no rub. Systolic murmur, not heard. Diastolic murmur, not heard. EXTREMITIES: No cyanosis, no edema. Peripheral pulses, full and equal in all extremities, except as noted. No bruits appreciated. ABDOMEN: Soft, nondistended. Normal aorta. No bruit. Nontender. No masses. Liver, nontender, no hepatomegaly. Spleen, nontender, no splenomegaly. HISTORY AND PHYSICAL [id number] CREASY,MOHAMUD A MUSCULOSKELETAL: No joint tenderness. No joint swelling. No erythema. NEUROLOGICAL: Normal gait, normal strength, normal tone. SKIN: Warm and dry. OVERALL IMPRESSION: High likelihood of hemodynamically significant coronary disease with markedly abnormal nuclear stress test and ongoing chest pain. We will proceed with coronary angiography. Further care depends on the findings of the angiography. TRANSINT:[id number] Voice Confirmation ID: [id number] DOCUMENT ID: [id number] ELOISA JEAN MD at 1214 CC: [id number] DICTATION DATE: 03/10/17 1013 DIRECTOR OF MANUFACTURING OPERATIONS: 03/10/17 1029 [facility] CLI 03/10/17 [place] [id number]
--- NOTE | 2017-03-23 12:14 | OP ---
PATIENT NAME: MOHAMUD ESCOBAR MEDICAL RECORD: [id number] :40 LOCATION:D.CAT ADMISSION DATE: SURGEON: ELOISA JEAN MD DATE OF OPERATION: 03/10/2017 PROCEDURES: 1. Left heart catheterization. 2. Selective coronary angiography. 3. Left ventriculogram. 4. Intravascular ultrasound. INDICATION: Angina, coronary artery disease, previous PTCA and stent. PROCEDURE IN DETAIL: After informed consent was obtained and after detailed explanation of risks, benefits as well as alternative therapies, the patient elected to proceed with angiogram and heart catheterization. The right femoral area was prepped and draped in normal sterile fashion. The right femoral artery was cannulated via modified Seldinger technique with placement of 5-Icelandic sheath. All catheters exchanged through this sheath. FINDINGS: The left ventriculogram was performed in standard 30-degree MAS view, reveals good cardiac wall motion throughout all segments. Overall ejection fraction estimated at 60%. SELECTIVE CORONARY ANGIOGRAPHY: 1. Left main is with no significant angiographic disease. 2. Left anterior descending has a previously placed stent. Intravascular ultrasound reveals there is no stenosis greater than 30% proximal or distal to this previously placed stent. No significant restenosis. 3. The left circumflex shows moderate irregularities, but no flow-limiting stenosis. 4. The right coronary has moderate irregularities, but no flow-limiting stenosis. OVERALL IMPRESSION: No significant restenosis of the previously placed stent. No disease elsewise. Continue medical management of the coronary artery disease and cardiac risk factors. TRANSINT:[id number] Voice Confirmation ID: [id number] DOCUMENT ID: [id number] ELOISA JEAN MD at 1214 CC: [id number] DICTATION DATE: 03/10/17 1031 CHIEF FUNDRAISING OFFICER: 03/10/17 1317 [facility] CLI 03/10/17 [place] [id number] [place] [address]
== END 2017-03-10 13:30 | disposition home or self-care (01) ==
LOC: D.CATH 07:24
PROVIDERS: Internal Medicine Interventional Cardiology
DX: I25.119 Atherosclerotic heart disease of native coronary artery with unspecified angina pectoris (principal); Z95.5 Presence of coronary angioplasty implant and graft; I10 Essential (primary) hypertension; E78.5 Hyperlipidemia, unspecified; Z01.812 Encounter for preprocedural laboratory examination

== ENCOUNTER 2018-05-01 13:15 | Emergency (ER) | payer MEDICARE, OTHER ==
[~2018-05-01] VITALS: Ht 162.6 cm; Wt 93.6 kg
[2018-05-01 13:26] VITALS: Ht 162.6 cm; Wt 93.6 kg
[2018-05-01] MEDS ORDERED: LOPID600 MG PO (13:29)
[2018-05-01 14:57] VITALS: BP 162/66
== END 2018-05-01 14:57 | disposition home or self-care (01) ==
LOC: D.ER 13:15
DX: S99.911A Unspecified injury of right ankle, initial encounter (principal); X50.1XXA Overexertion from prolonged static or awkward postures, initial encounter; Y93.89 Activity, other specified; Y92.019 Unspecified place in single-family (private) house as the place of occurrence of the external cause

== ENCOUNTER 2018-06-24 09:29 | Outpatient (CLI) | payer MEDICARE, OTHER ==
[~2018-06-24] VITALS: Ht 162.6 cm; Wt 93.6 kg
--- NOTE | ~2018-06-24 | HEMODYNAMI ---
PATIENT:MOHAMUD ESCOBAR MEDICAL RECORD: [id number] : 40 LOCATION:[facility] ADMISSION DATE: 06/24/18 Generatedon:06/24/201813:16 Patient name: MOHAMUD ESCOBAR Patient #: [id number] SSN: [id number] : 1940 Date of study: 06/24/2018 Page: Of Hemodynamic Procedure Report Patient Data Patient Demographics Procedure consent was obtained First Name: MOHAMUD Gender: Female Last Name: SHAWN : 1940 Middle Initial: A Age: 77 year(s) Patient #: [id number] Race: Unknown SSN: [id number] Additional ID: [id number] Contact details [address]: [address] [place] [address] State: [place] City: [place] Zip code: [address] Past Medical History Allergies Allergen Reaction Date Comments Reported IV contrast dye 04/21/2016 Codeine 04/21/2016 Bactrim 04/21/2016 Other allergy 04/21/2016 Levaquin, Flagyl Other allergy 06/24/2018 anesthetics, bactrim, codar GF, Flagly, iodine contrast, Levaquin, Prozac, Shrimp, Sulfa Admission Admission Data Admission Date: 06/24/2018 Admission Time: 9:29 Height (in.): 64 BSA: 1.98 (m2) Height (cm.): 162.56 BMI: 35.43 (kg/m2) Weight (lbs.): 206.42 Weight (kg.): 93.63 Lab Results Lab Result Date: 06/24/2018 Lab Result Time: 0:00 Biochemistry Name Units Result Min Max BUN mg/dl 27 --(----)-* 7 18 Creatinine mg/dl 1.9 --(----)-* 0.6 1.3 CBC Name Units Result Min Max Hemoglobin g/dl 13.6 --(*---)-- 13.5 17.5 Procedure Procedure Types Cath Procedure Diagnostic Procedure [facility] w/Coronaries FFR/IVUS Intra-Coronary IVUS Initial Sedation Charges Moderate Sedation up to 15 minutes PCI Procedure Coronary Stent Coronary Stent Initial Procedure Description Procedure Date Procedure Date: 06/24/2018 Procedure Start Time: 12:52 Procedure End Time: 13:11 Procedure Staff Name Function Blade Montana MD Performing Physician Paulina Dang RT Monitor Shyanne Rock RN Nurse Gutierrez Brown RT Scrub Procedure Data Cath Procedure Fluoroscopy Diagnostic fluoroscopy Total fluoroscopy Time: 4.7 time: 4.7 min min Diagnostic fluoroscopy Total fluoroscopy dose: 488 dose: 488 mGy mGy Contrast Material Contrast Material Type Amount (ml) Isovue 370 115 Entry Location Entry Primary Successful Side Size Upsize Upsize Entry Closure Succes sful Closure Location (Fr) 1 (Fr) 2 (Fr) Remarks Device Remarks Femoral Right 5 Fr 6 Fr Exoseal artery Short Estimated blood loss: 10 ml Diagnostic catheters Device Type Used For End Catheter Placement MULTIPACK Pigtail 5 Fr Procedure catheter MULTIPACK JL 4.0 5Fr Procedure catheter MULTIPACK 3DRC 5Fr Procedure catheter Procedure Complications No complications Procedure Medications Medication Administration Route Dosage Oxygen etCO2 Nasal cannula 2 l/min Lidocaine 2% added to field 20 Heparin Flush Bag added to field 2 bags (1000units/500ml NS) 0.9% NaCl I.V. 100 ml/hr Versed I.V. 1 mg Fentanyl I.V. 50 mcg Versed I.V. 1 mg Fentanyl I.V. 50 mcg Versed I.V. 1 mg Fentanyl I.V. 50 mcg Heparin Bolus I.V. 4000 units Hemodynamics Rest BSA: 1.98 (m2) O2 Consumption: Estimated: 269.28 (ml/min) O2 Consumption indexed : Estimated:136 (ml/min/m) Pre Cath Intra NCS Post Cath Vital Signs Time Heart Resp SPO2 etCO2 NIBP (mmHg) Rhythm Pain Sedation Rate (ipm) (%) (mmHg) Status Level (bpm) 12:44:32 76 22 93 28.8 152/83(103) NSR 0 (11) 10(A) , No pain 12:48:52 66 21 93 32.5 148/74(112) NSR 0 (11) 10(A) , No pain 12:53:08 71 19 95 34 148/81(111) NSR 0 (11) 9(A) , No pain 12:57:31 68 17 93 39.3 147/76(111) NSR 0 (11) 9(A) , No pain 13:01:46 70 18 94 40.8 142/75(115) NSR 0 (11) 9(A) , No pain 13:06:05 73 15 94 37.1 142/78(99) NSR 0 (11) 9(A) , No pain 13:10:25 77 14 93 39.4 149/76(107) NSR 0 (11) 10(A) , No pain Medications Time Medication Route Dose Verified Delivered Reason Notes Effectiveness by by 12:33:03 Oxygen etCO2 2 Blade Buffie used for Nasal l/min Nan Rock RN procedure cannula 12:33:10 Lidocaine 2% added 20ml Blade Blade for local to vial Nan Montana MD anesthetic field 12:33:16 Heparin Flush added 2 Blade Blade used for Bag to bags Nan Montana MD procedure (1000units/500ml field NS) 12:33:25 0.9% NaCl I.V. 100 Blade Buffie Per physician ml/hr Nan Rock RN 12:49:24 Versed I.V. 1 mg Blade Buffie for sedation Nan Rock RN 12:49:30 Fentanyl I.V. 50 Blade Buffie for sedation mcg Nan Rock RN 12:54:28 Versed I.V. 1 mg Blade Buffie for sedation Nan Rock RN 12:54:32 Fentanyl I.V. 50 Blade Buffie for sedation mcg Nan Rock RN 12:58:17 Versed I.V. 1 mg Blade Buffie for sedation Nan Rock RN 12:58:21 Fentanyl I.V. 50 Blade Buffie for sedation mcg Nan Rock RN 13:04:46 Heparin Bolus I.V. 4000 Blade Buffie for verif ied units Nan Rock RN anticoagulation with dr montana Procedure Log Time Note 12:22:01 Lab Result : BUN 27 mg/dl 12:22:01 Lab Result : Hemoglobin 13.6 g/dl 12:22:01 Lab Result : Creatinine 1.9 mg/dl 12:23:32 Patient Height : 64 inches 12:23:40 Patient Weight : 206.42 lbs 12:24:17 Diagnostic Cath status Elective 12:24:20 Gutierrez Brown RT(R) sent for patient. Start room use. 12:24:21 Time tracking: Regular hours (M-F 7:00 - 5:00) 12:24:27 Plan of Care:Hemodynamics will remain stable., Cardiac rhythm will remain stable., Comfort level will be maintained., Respiratory function will remain adequate., Patient/ family verbilizes understanding of procedure., Procedure tolerated without complication., Recovers from procedure without complications.. 12:29:34 Patient received from Pre/Post Procedure Room to CCL 1 Alert and oriented. Tansferred to table in Supine position. 12:29:35 Warm blankets applied, and darling hugger turned on for patient comfort. 12:29:36 Correct patient and procedure confirmed by team. 12:29:38 Signed procedure consent form obtained from patient. 12:30:14 H&P Date Dictated: 06/22/2018 Within 30 days and on chart., H&P Addendum completed by physician on day of procedure. (MUST COMPLETE FOR ALL OUTPATIENTS). 12:31:41 Patient allergic to Other allergyanesthetics, bactrim, codar GF, Flagly, iodine contrast, Levaquin, Prozac, Shrimp, Sulfa 12:31:49 Is the patient allergic to Iodine/contrast media? Yes. 12:31:52 Was the patient premedicated? Yes 12:33:03 Oxygen 2 l/min etCO2 Nasal cannula was administered by Shyanne Rock RN; used for procedure; 12:33:10 Lidocaine 2% 20ml vial added to field was administered by Blade Montana MD; for local anesthetic; 12:33:16 Heparin Flush Bag (1000units/500ml NS) 2 bags added to field was administered by Blade Montana MD; used for procedure; 12:33:25 0.9% NaCl 100 ml/hr I.V. was administered by Shyanne Rock RN; Per physician; 12:43:19 Vital chart was started 12:44:05 Is patient on blood thinner?Yes 12:44:09 ACC The patient was administered the following blood thiners within the last 24 hours: ACCPlavix 12:44:20 Patient diabetic? No. 12:44:27 Snore? Yes 12:44:29 Sleep apnea? Yes 12:44:30 Deviated septum? No 12:44:36 Dentures? No ? 12:44:45 Patient pain scale 0/10 ?. 12:44:53 IV patent on arrival in right forearm with 0.9% NaCl at [facility]. 12:44:57 Lab results completed and on chart. 12:45:01 Right groin area was prepped with chlora-prep and draped in sterile fashion 12:45:03 Alarms reviewed by R. N. 12:45:04 Sharps counted by scrub and verified by R.N. 12:45:06 Physician paged 12:45:12 Use device set Femoral Dx 12:45:13 ACIST Syringe (02955) opened to sterile field. 12:45:14 Bag Decanter (2002S) opened to sterile field. 12:45:14 Medline Cath Pack ([id number]) opened to sterile field. 12:45:15 DIAGNOSTIC WIRE .035 260cm J wire (981435) opened to sterile field. 12:45:16 ACIST Hand Control (12369) opened to sterile field. 12:45:17 ACIST Manifold (13062) opened to sterile field. 12:45:17 DIAGNOSTIC Multipack 5Fr catheter set (DF7557) opened to sterile field. 12:45:17 Tegaderm 4 x 4 (1626W) opened to sterile field. 12:45:19 SHEATH 5FR [place] (XPE339) opened to sterile field. 12:48:27 Zero performed for pressure channel P1 12:49:09 Physician arrived 12:49:10 --------ALL STOP TIME OUT------ 12:49:10 Final Timeout: patient, procedure, and site verified with staff and physician. All members of the team are in agreement. 12:49:15 Right groin site verified by team. 12:49:24 Versed 1 mg I.V. was administered by Shyanne Rock RN; for sedation; 12:49:30 Fentanyl 50 mcg I.V. was administered by Shyanne Rock RN; for sedation; 12:49:39 Maximum allowable Isovue 300 dose 36ml. Physician notified. (300ml for normal creatinines. For patients with creatinine of 1.7 or higher multiply weight(kg) x 5 divided by creatinine.) 12:49:46 Fire Safety Assessment: A--An alcohol-based skin anteseptic being used preoperatively., C--Open oxygen or nitrous oxide is being used., D--An ESU, laser, or fiber-optic light is being used. 12:50:17 Physical assessment completed. ASA score P 2 - A patient with mild systemic disease as per Blade Montana MD. 12:50:21 Sedation plan: IV Moderate Sedation Medication:Versed, Fentanyl 12:52:38 Procedure started. 12::38 Full Disclosure recording started 12:52:41 Local anesthetic to right femoral artery with Lidocaine 2% by Blade Montana MD.INITIAL ACCESS ONLY 12:53:04 A 5 Fr sheath was inserted into the Right Femoral artery 12:53:17 A MULTIPACK Pigtail 5 Fr catheter was advanced over the wire and used for Procedure. 12:53:28 LV gram done using MAS 12:53:52 EF : 55 % 12:53:55 Catheter removed. 12:54:01 A MULTIPACK JL 4.0 5Fr catheter was advanced over the wire and used for Procedure. 12:54:15 LCA angiography performed. 12:54:28 Versed 1 mg I.V. was administered by Shyanne Rock RN; for sedation; 12:54:32 Fentanyl 50 mcg I.V. was administered by Shyanne Rock RN; for sedation; 12:55:29 Catheter removed. 12:55:37 A MULTIPACK 3DRC 5Fr catheter was advanced over the wire and used for Procedure. 12:55:40 RCA angiography performed. 12:56:51 INFLATOR Merit BasixCompak (DP7711) opened to sterile field. 12:56:52 SHEATH 6FR [place] (IWY978) opened to sterile field. 12:56:52 CHOICE PT Extra Support 182cm wire ([id number]) opened to sterile field. 12:56:52 GUIDE 6FR XBLAD 3.5 catheter ([id number]) opened to sterile field. 12:56:53 [place] IVUS Catheter (62034T) opened to sterile field. 12:56:57 Catheter removed. 12:56:57 Proceeding to intervention. 12:57:11 Sheath upsized to a 6 Fr Short. 12:57:23 6 Fr XBLAD3.5 guide catheter was inserted over the wire 12:58:17 Versed 1 mg I.V. was administered by Shyanne Rock RN; for sedation; 12:58:21 Fentanyl 50 mcg I.V. was administered by Shyanne Rock RN; for sedation; 13:04:27 choice wire advanced. 13:04:28 IVUS catheter advanced over wire. 13:04:29 IVUS catheter removed over wire. 13:04:46 Heparin Bolus 4000 units I.V. was administered by Shyanne Rock RN; for anticoagulation; verified with dr montana 13:06:26 Place stent Inflation Number: 1 A INTEGRITY RX 3.5 x 12 stent ([id number]) was prepped and advanced across the Prox LAD. The stent was deployed at 17 JESU for 0:05 (min:sec). 13:06:38 EXOSEAL 6Fr (EX600) opened to sterile field. 13:08:48 Wire removed. 13:08:48 Guide catheter removed. 13:08:57 Sheath removed intact; hemostasis achieved with Exoseal to the Right Femoral artery. 13:09:00 Procedure ended.(Physican Out) 13:09:13 Fluoroscopy time 04.70 minutes. 13:09:19 Flurop Dose total: 488 13:09:19 Fluoroscopy dose: 488 mGy 13:09:29 Contrast amount:Isovue 370 115ml. 13:09:32 Sharps counted by scrub and verified by R.N. 13:09:33 Insertion/operative site no bleeding no hematoma. 13:09:35 Post Procedure Pulses reassessed and unchanged 13:09:40 Post-procedure physical assessment completed. ASA score P 2 - A patient with mild systemic disease as per Blade Montana MD. 13:09:45 Post procedure rhythm: unchanged. 13:09:50 Estimated blood loss: 10 ml 13:09:57 Post procedure instruction explained to patient.Patient verbalizes understanding. 13:10:29 Procedure type changed to Cath procedure, Diagnostic procedure, LHC, LHC w/Coronaries, FFR/IVUS, Intra-Coronary IVUS Initial, Sedation Charges, Moderate Sedation up to 15 minutes, PCI procedure, Coronary Stent, Coronary Stent Initial 13:10:31 Procedure and supply charges have been captured, reviewed, submitted and are correct. 13:11:03 Procedure Complication : No complications 13:11:08 Vital chart was stopped 13:11:11 See physician's report for complete and final results. 13:11:13 Report given to Pre/Post Procedure Room. 13:11:17 Patient transfered to Pre/Post Procedure Room with Stretcher. 13:11:19 Procedure ended. 13:11:19 Full Disclosure recording stopped 13:11:22 End room use (Document Last) Intervention Summary Intervention Notes Time ActionType Lesion and Equipment Action# Pressure Duration Attributes Used 13:06:26 Place stent Prox LAD INTEGRITY RX 1 17 00:05 3.5 x 12 stent ([id number]) Device Usage Item Name Manufacture Quantity Catalog Number Hospital Part Current Mini mal Lot# / Charge Number Stock Stock Serial# Code ACIST Acist 1 54677 386926 624726 864463 20 Syringe Medical (17013) Systems Inc Bag Decanter Microtek 1 2001S 864629 27395 385797 5 () Medical Inc. Medline Cath Medline 1 [id number] 806496 60887 688589 5 Pack ([id number]) DIAGNOSTIC St Rajinder 1 939964 237112 893632 847135 30 WIRE .035 260cm J wire (184002) ACIST Hand Acist 1 51217 231582 042660 858735 5 Control Medical (37962) Systems Inc ACIST Acist 1 09199 071757 222792 980698 5 Manifold Medical (80066) Systems Inc DIAGNOSTIC Cardinal 1 IO9299 738397 76770 786454 30 Multipack Health 5Fr catheter set (MM7051) Tegaderm 4 x 3M 1 1626W 937270 733016 162021 5 4 (1626W) SHEATH 5FR Terumo 1 UYB833 728376 234925 947229 5 [place] (PED488) MULTIPACK Cardinal 1 163438 5 Pigtail 5 Fr Health catheter MULTIPACK JL Cardinal 1 832899 5 4.0 5Fr Health catheter MULTIPACK Cardinal 1 073054 5 3DRC 5Fr Health catheter INFLATOR Merit 1 RQ5426 052958 931417 583022 15 EcoLogicLiving Medical BasixCompak (YG2607) SHEATH 6FR Terumo 1 YIM945 055586 203233 485467 40 [place] (ZON111) CHOICE PT [place] 1 [id number] 508653 022818 148663 5 Extra Scientific Support 182cm wire ([id number]) GUIDE 6FR Cardinal 1 [id number] 177205 147643 980403 10 XBLAD 3.5 Health catheter (41062283) [place] 1 58749P 055113 220716 149105 8 [place] IVUS Catheter (88781K) INTEGRITY RX Medtronic 1 [id number] 872823 338944 706193 5 [id number] 3.5 x 12 stent ([id number]) EXOSEAL 6Fr Cardinal 1 EX600 301258 235857 615723 10 (EX600) Health Signature Audit [place] Stage Time Signature Unsigned Intra-Procedure 06/24/2018 Paulina Dang 1:15:57 PM RT(R) Signatures Monitor : Paulina Dang Signature : RT Date : Time : [address] [address]
[2018-06-24 10:05] VITALS: BP 150/77; Ht 162.6 cm; Wt 93.6 kg
[2018-06-24 10:27] LABS: BASOPHILS 0 % (0-2); EOSINOPHILS 0 % (0-7); HEMATOCRIT 39.9 % (36.0-48.0); HEMOGLOBIN 13.6 g/dL (12-16); IMMATURE GRANULOCYTES 0.3 % (0-5); LYMPHOCYTES 24.4 % (15-50); MCH 30.2 pg (26.0-34.0); MCHC 34.1 g/dL (31.0-37.0); MCV 88.5 fL (80.0-100.0); MEAN PLATELET VOLUME 9.5 fL (7.4-10.4); MONOCYTES 1.6 % (2-11); NEUTROPHILS 73.7 % (40-80); RBC 4.51 10x6/uL (4.00-5.40); WBC 6.8 10x3/uL (4.8-10.8)
[2018-06-24 10:30] LABS: PLATELET COUNT 246 10x3/uL (130-400)
[2018-06-24 10:36] LABS: ANION GAP 19.4 mmol/L (8-16); CALCIUM 10.2 mg/dL (8.5-10.1); CARBON DIOXIDE 22.7 mmol/L (21.0-32.0); CREATININE - SERUM 1.9 mg/dL (0.6-1.3); POTASSIUM - SERUM 4.1 mmol/L (3.5-5.1)
--- NOTE | 2018-06-24 13:40 | NUR ---
2L NC, NO RESP DISTRESS. RIGHT GROIN 6F EXOSEAL CDI, NO BLEEDING OR HEMATOMA NOTED. NO C/O PAIN OR NAUSEA. VSS. FAMILY AT BEDSIDE, CALL LIGHT WITHIN REACH.
--- NOTE | 2018-06-24 14:10 | NUR ---
RIGHT GROIN 6F EXOSEAL CDI, NO BLEEDING OR HEMATOMA NOTED. NO NEEDS OR C/O VOICED AT THIS TIME. VSS. WILL CONTINUE TO MONITOR.
--- NOTE | 2018-06-24 14:25 | NUR ---
RESTING QUIETLY WITH EYES CLOSED. RIGHT GROIN 6F EXOSEAL CDI, NO BLEEDING OR HEMATOMA NOTED. DENIES ANY NEEDS. VSS. CALL LIGHT WITHIN REACH.
--- NOTE | 2018-06-24 14:55 | NUR ---
CONTINUES TO REST COMFORTABLY WITH NO C/O. RIGHT GROIN 6F EXOSEAL CDI, NO BLEEDING OR HEMATOMA NOTED. VSS. FAMILY AT BEDSIDE, WILL CONTINUE TO MONITOR.
--- NOTE | 2018-06-24 14:58 | OP ---
PATIENT NAME: MOHAMUD ESCOBAR MEDICAL RECORD: [id number] :40 LOCATION:D.CAT ADMISSION DATE: SURGEON: ELOISA JEAN MD DATE OF OPERATION: 06/24/2018 DATE OF SERVICE: 06/24/2018 PROCEDURES: 1. PTCA stent LAD. 2. Intravascular ultrasound of the LAD. 3. Left heart catheterization. 4. Selective coronary angiography. 5. Left ventriculogram. INDICATION: Angina and coronary artery disease. PROCEDURE IN DETAIL: After informed consent was obtained and after a detailed description of risks, benefits as well as alternative therapies, the patient elected to proceed with angiogram and angioplasty. This right femoral area was prepped and draped in normal sterile fashion. Right femoral artery was cannulated via modified Seldinger technique with placement of a 6-[place] sheath. All catheters exchanged this sheath. FINDINGS: Left ventriculogram was performed in standard 30-degree MAS view, reveals good cardiac wall motion throughout all segments. Overall ejection fraction estimated at 60%. SELECTIVE CORONARY ANGIOGRAPHY: 1. Left main is with no significant angiographic disease. 2. Left anterior descending has previously placed stent just prior to this confirmed by intravascular ultrasound of 70% stenosis. 3. The left circumflex has mild irregularities, but no flow-limiting stenosis. 4. Right coronary has mild irregularities, but no flow-limiting stenosis. PTCA STENT OF THE LAD: The stent used was a 3.5 x 12 mm Integrity. Result was 0% residual stenosis. OVERALL IMPRESSION: Successful percutaneous transluminal coronary angioplasty stent of the left anterior descending going from 70% initial stenosis to 0% residual. TRANSINT:[id number] Voice Confirmation ID: [id number] DOCUMENT ID: [id number] ELOISA JEAN MD at 1458 CC: [id number] DICTATION DATE: 06/24/18 1311 PRODUCT CONTROL AND LOGISTICS ANALYST: 06/24/18 1347 [address] [place] [address] [place] [address]
--- NOTE | 2018-06-24 15:25 | NUR ---
RIGHT GROIN 6F EXOSEAL CDI, NO BLEEDING OR HEMATOMA NOTED. 2L NC WITH NO RESP DISTRESS. NO C/O OR NEEDS VOICED. VSS. CALL LIGHT WITHIN REACH.
--- NOTE | 2018-06-24 16:15 | NUR ---
RIGHT GROIN DRESSING C/D/I. NO S/S OF HEMATOMA NOTED. PT'S HEAD OF BED INC TO 30 DEGREES. TOLERATED WELL. VSS. SET UP WITH DRINK AND SANDWICH TRAY.
--- NOTE | 2018-06-24 16:50 | NUR ---
RIGHT AC PIV D/C'D WITH CATH TIP INTACT. PT TOLERATED WELL. PT INSTRUCTED TO GET DRESSED. RIGHT GROIN DRESSING C/D/I. NO S/S OF HEMATOMA NOTED.
--- NOTE | 2018-06-24 17:00 | NUR ---
PT AMBULATED TO RESTROOM. VOIDED WITHOUT DIFFICULTY. NO S/S OF DISTRESS NOTED.
--- NOTE | 2018-06-24 17:15 | NUR ---
PT TAKEN OUT TO VEHICLE BY WHEELCHAIR. NO S/S OF DISTRESS NOTED. ALL BELONGINGS AND PAPERWORK IN HAND.
== END 2018-06-24 17:15 | disposition home or self-care (01) ==
LOC: D.CATH 09:29
PROVIDERS: ATTEND Internal Medicine Interventional Cardiology
DX: I25.110 Atherosclerotic heart disease of native coronary artery with unstable angina pectoris (principal)

== ENCOUNTER 2018-10-31 18:12 | Observation (INO) | payer MEDICARE, OTHER ==
[~2018-10-31] VITALS: Ht 162.6 cm; Wt 96.4 kg
[2018-10-31] MEDS ORDERED: LIPITOR10 MG PO (18:31)
[2018-10-31 18:49] LABS: BASOPHILS 0.1 % (0-2); EOSINOPHILS 2.1 % (0-7); HEMATOCRIT 41.5 % (36.0-48.0); IMMATURE GRANULOCYTES 0.3 % (0-5); LYMPHOCYTES 47.5 % (15-50); MCH 29.7 pg (26.0-34.0); MCHC 33.7 g/dL (31.0-37.0); MCV 88.1 fL (80.0-100.0); MEAN PLATELET VOLUME 9.1 fL (7.4-10.4); MONOCYTES 9.2 % (2-11); NEUTROPHILS 40.8 % (40-80); RBC 4.71 10x6/uL (4.00-5.40); RDW 14.4 % (11.5-14.5); WBC 8.8 10x3/uL (4.8-10.8)
[2018-10-31 18:57] LABS: PLATELET COUNT 170 10x3/uL (130-400)
--- NOTE | 2018-10-31 19:00 | NUR ---
HAND OFF REPORT GIVEN TO ELSA QUEZADA USING SBAR COMMUNICATION.
--- NOTE | 2018-10-31 19:10 | NUR ---
PT RESTING ON BED, FAMILY AT BEDSIDE. NO S/S OF ACUTE DISTRESS NOTED.
[2018-10-31 19:11] LABS: ALBUMIN 4.1 g/dL (3.4-5.0); ALKALINE PHOSPHATASE 127 U/L (46-116); ALT (SGPT) 20 U/L (10-68); CALC OSMOLALITY 281 mosm/kg (275-300); CALCIUM 9.5 mg/dL (8.5-10.1); CARBON DIOXIDE 28.3 mmol/L (21.0-32.0); CHLORIDE - SERUM 102 mmol/L (98-107); CREATININE - SERUM 1.6 mg/dL (0.6-1.3); GLUCOSE 142 mg/dL (74-106); POTASSIUM - SERUM 3.3 mmol/L (3.5-5.1); PROTEIN - SERUM 7.8 g/dL (6.4-8.2); SODIUM 140 mmol/L (136-145); UREA NITROGEN 15 mg/dL (7-18); eGFR NON AFRICAN AMERICAN 33 mL/min (90-120)
[2018-10-31 19:13] LABS: APTT 29.3 SECONDS (22.8-39.4); INR 0.95 (0.85-1.17); PROTIME 12.2 SECONDS (11.6-15.0)
[2018-10-31 19:18] LABS: APPEARANCE CLEAR (CLEAR); COLOR YELLOW (YELLOW)
[2018-10-31 19:19] LABS: BACTERIA MANY /hpf (NONE SEEN); BILIRUBIN NEGATIVE (NEGATIVE); EPITHELIAL CELLS 0-5 /hpf (0-5); GLUCOSE NEGATIVE (NEGATIVE); KETONE NEGATIVE (NEGATIVE); NITRITE NEGATIVE (NEGATIVE); PROTEIN 1+ mg/dL (NEGATIVE); RED CELLS - URINE 0-5 /hpf (0-5); UROBILINOGEN NORMAL (NORMAL)
[2018-10-31 19:21] LABS: CKMB 2.5 U/L (0.0-3.6); CREATINE KINASE 133 UL (21-215); MAGNESIUM - SERUM 1.8 mg/dL (1.8-2.4)
[2018-10-31 19:22] LABS: TROPONIN-I < 0.017 ng/mL (0.000-0.060)
[2018-10-31 19:30] VITALS: BP 145/68
[2018-10-31 20:00] VITALS: BP 147/82
--- NOTE | 2018-10-31 20:00 | NUR ---
PT AMBULATED TO RESTROOM WITH A STEADY GAIT.
[2018-10-31 20:30] VITALS: BP 157/91
--- NOTE | 2018-10-31 20:39 | NUR ---
PT RESTING ON BED. FAMILY AT BEDSIDE. NO S/S OF ACUTE DISTRESS NOTED AT THIS TIME.
--- NOTE | 2018-10-31 21:41 | NUR ---
PT AMBULATED TO RESTROOM WITH A STEADY GAIT. PT PROVIDED SANDWICH BOX PER REQUEST. PT FAMILY AT BEDSIDE.
--- NOTE | 2018-10-31 21:51 | NUR ---
RECIEVED TO ROOM 2122 FROM ER VIA . PT A&O. RESPERATIONS EVEN ON RA. VITALS STABLE. IV TO RIGHT ARM WITH NS INFUSING. IV SITE CLEAN AND DRY. PLACED ON TELEMETRY, 78 SR PER MT. HISTORY AND MED REC OBTAINED. AT BED SIDE. PT DENIES PAIN OR NEEDS AT THIS TIME, BED LOW. CL IN REACH.
[2018-10-31] MEDS ORDERED: BAYER CHEWABLE81 MG PO (22:11)
[2018-10-31] MEDS ORDERED: ROBAXIN500 MG PO (22:12)
[2018-10-31 22:14] VITALS: BP 106/82; BMI 36.4
--- NOTE | 2018-10-31 23:59 | NUR ---
NOTIFIED BY PT THAT SHE USIALLY SLEEPS WITH A C-PAP AT NIGHT DUE TO APNEA. PLACED PT ON O2 AT 2 LITERS VIA NC.
[2018-11-01] VITALS: BP 120/53
[2018-11-01 00:52] LABS: CKMB 2.6 U/L (0.0-3.6); CREATINE KINASE 115 UL (21-215)
[2018-11-01 00:54] LABS: TROPONIN-I < 0.017 ng/mL (0.000-0.060)
[2018-11-01 04:00] VITALS: BP 123/49
--- NOTE | 2018-11-01 05:14 | NUR ---
I have reviewed this patient and I concur with the Shift Assessment completed by the Licensed Practical Nurse today this shift.
[2018-11-01 07:04] LABS: CKMB 1.9 U/L (0.0-3.6); CREATINE KINASE 95 UL (21-215)
[2018-11-01 07:08] LABS: TROPONIN-I < 0.017 ng/mL (0.000-0.060)
--- NOTE | 2018-11-01 07:45 | NUR ---
ASSESSMENT COMPLETED. ALERT AND ORIENTED. TELEMERTY SHOWS SR. UP AB LORETTA. RIGHT FOREARM IV WITH NS AT 75. DENIES ANY NEEDS OR ANGINA. SR UP WITH CALL LIGHT IN REACH
[2018-11-01 08:07] VITALS: BP 134/60
[2018-11-01 08:53] VITALS: Ht 162.6 cm; Wt 96.4 kg
[2018-11-01 11:34] LABS: CKMB 1.8 U/L (0.0-3.6); CREATINE KINASE 112 UL (21-215); TROPONIN-I < 0.017 ng/mL (0.000-0.060)
[2018-11-01 12:22] VITALS: BP 156/74
[2018-11-01 20:00] VITALS: BP 130/64
--- NOTE | 2018-11-01 21:43 | NUR ---
HS MEDS GIVEN WITH FRESH ICE WATER. PT DENIES PAIN OR NEEDS.
[2018-11-02] VITALS: BP 135/55
--- NOTE | 2018-11-02 01:39 | NUR ---
I have reviewed this patient and I concur with the Shift Assessment completed by the Licensed Practical Nurse today this shift.
[2018-11-02 04:00] VITALS: BP 146/69
[2018-11-02 06:26] LABS: BASOPHILS 0.1 % (0-2); EOSINOPHILS 3.8 % (0-7); HEMATOCRIT 37.2 % (36.0-48.0); HEMOGLOBIN 12.3 g/dL (12-16); IMMATURE GRANULOCYTES 0.1 % (0-5); LYMPHOCYTES 47.2 % (15-50); MCH 29.2 pg (26.0-34.0); MCHC 33.1 g/dL (31.0-37.0); MCV 88.4 fL (80.0-100.0); MEAN PLATELET VOLUME 9.6 fL (7.4-10.4); MONOCYTES 8.9 % (2-11); NEUTROPHILS 39.9 % (40-80); PLATELET COUNT 166 10x3/uL (130-400); RBC 4.21 10x6/uL (4.00-5.40); RDW 14.6 % (11.5-14.5); WBC 6.8 10x3/uL (4.8-10.8)
[2018-11-02 06:50] LABS: ALBUMIN 3.3 g/dL (3.4-5.0); ANION GAP 9.9 mmol/L (8-16); BILIRUBIN - TOTAL 0.29 mg/dL (0.2-1.3); CARBON DIOXIDE 27.4 mmol/L (21.0-32.0); CREATININE - SERUM 1.4 mg/dL (0.6-1.3); MAGNESIUM - SERUM 1.8 mg/dL (1.8-2.4); PHOSPHOROUS 3.9 mg/dL (2.5-4.9); POTASSIUM - SERUM 3.3 mmol/L (3.5-5.1); PROTEIN - SERUM 6.3 g/dL (6.4-8.2)
--- NOTE | 2018-11-02 07:46 | NUR ---
REPORT RECEIVED. WILL CONTINUE WITH POC. PT CURRENTLY LYING ON RIGHT SIDE RESTING. CALL LIGHT W/I REACH. PT DENIES ANY NEEDS AT THIS TIME. NO S/S OF DISTRESS NOTED. R.FOR PIV IS SALINE LOCKED. RR EVEN AND UNLABORED ON 2L. WILL CTM.
[2018-11-02 12:27] VITALS: BP 152/81
[2018-11-02] MEDS ORDERED: KEFLEX500 MG PO (14:00)
--- NOTE | 2018-11-02 15:27 | NUR ---
I have reviewed this patient and I concur with the Shift Assessment completed by the Licensed Practical Nurse today this shift.
--- NOTE | 2018-11-02 16:57 | NUR ---
PT DISCHARGED HOME VIA WHEELCHAIR WITH FAMILY. PT SIGNED PROPER DISCHARGE INSTRUCTION AND REMOVED ALL VALUABLES FROM THE ROOM. TELEMETRY REMOVED AND RETURNED. PIV REMOVED WITH CATHETER TIP FULLY INTACT.
--- NOTE | 2018-11-03 07:37 | MORECARE ---
CASE MANAGEMENT DISCHARGE SUMMARY PATIENT: MOHAMUD ESCOBAR UNIT: [id number] ADM DATE: 10/31/18 AGE: 77 : 40 SEX: F ROOM/BED: D.4447 AUTHOR: DONI YEBOAH PHYSICIAN: REFERRING PHYSICIAN: TINO FRANKLIN MD DATE OF SERVICE: 11/03/18 Discharge Plan Patient Name: MOHAMUD ESCOBAR [facility] [facility] 1940 Planned Disposition: Home Anticipated Discharge Date: 11/02/18 Discharge Date: 11/02/2018 Expected LOS: 2 Initial Reviewer: [email or web address] Initial Review Date: 11/03/2018 Generated: 11/03/18 8:37 am External Providers External Provider: OTHER-OTHER Next Contact Date: Service Request Date: Service Type: Resolution: Reviewer: Comments: Coverage Notice Reviewer: [email or web address] Portillo Miranda Notice Issued Date-Time: 11/01/2018 13:58 Notice Type: Medicare Outpatient Observation Notice Notice Delivered To: Other Relationship to Patient: Spouse Registered Public Health Nurse Name: ROBBY ESCOBAR Delivery Method: HAND - Hand Delivered Jessika Days: Prior Verbal Notification: Recipient Understood Notice: Yes Recipient Signature: Med Rec Note Co-signed by Attending: Coverage Notice Comment: DISCUSSED CERON WITH SPOUSE ROBBY AFTER VERBAL CONSENT RECEIVED. SPOUSE DENIED QUESTIONS. Patient Name: MOHAMUD ESCOBAR Page [phone] at 0737 All edits/amendments must be made on the electronic document DICTATION DATE: 11/03/18 0737 ORACLE DBA: AYALA 11/03/18 0737 RPT#: [id number] DC DATE:11/02/18 STATUS: DIS IN [facility] [address] [place] [address] END OF REPORT
== END 2018-11-02 16:59 | disposition home or self-care (01) ==
LOC: D.ER 18:12 → D.M2 20:49 → OBSVTIME 20:52 → D.M2 11-02 16:59
PROVIDERS: Emergency Medicine; Family Medicine; ADMIT Emergency Medicine; ATTEND Emergency Medicine
DX: R07.9 Chest pain, unspecified (principal); R06.00 Dyspnea, unspecified; I10 Essential (primary) hypertension; I25.10 Atherosclerotic heart disease of native coronary artery without angina pectoris; J45.909 Unspecified asthma, uncomplicated; G47.33 Obstructive sleep apnea (adult) (pediatric); K21.9 Gastro-esophageal reflux disease without esophagitis; M35.00 Sjogren syndrome, unspecified; M79.7 Fibromyalgia; K57.90 Diverticulosis of intestine, part unspecified, without perforation or abscess without bleeding; M19.90 Unspecified osteoarthritis, unspecified site; G89.29 Other chronic pain; F03.90 Unspecified dementia, unspecified severity, without behavioral disturbance, psychotic disturbance, mood disturbance, and anxiety; N39.0 Urinary tract infection, site not specified